=== PATIENT | male | born 1945 | race Caucasian/White ===

== ENCOUNTER 2023-11-17 16:13 | Emergency (ER) | payer OTHER, MEDICARE ==
[~2023-11-17] VITALS: Ht 160 cm; Wt 109.1 kg
[2023-11-17 16:42] VITALS: BP 156/111; PULSE 103; RESP 18; O2SAT 96
[2023-11-17 18:21] VITALS: TEMP 98.4
== END 2023-11-17 18:28 | disposition home or self-care (01) ==
LOC: ER 16:15
DX: T53.5X1A Toxic effect of chlorofluorocarbons, accidental (unintentional), initial encounter (principal); R42 Dizziness and giddiness; R11.0 Nausea; Y92.89 Other specified places as the place of occurrence of the external cause
CPT/HCPCS: 99281

== ENCOUNTER 2023-11-26 15:50 | Inpatient (IN) | payer OTHER, MEDICARE ==
[~2023-11-26] VITALS: Ht 160 cm; Wt 107.7 kg
[2023-11-26 18:03] LABS: BILIRUBIN,URINE NEGATIVE (Neg); CLARITY,URINE SLIGHTLY CLOUDY (Clear); COLOR,URINE YELLOW (Yellow); GLUCOSE, URINE NEGATIVE (Neg); KETONES,URINE NEGATIVE (Neg); LEUKOCYTE ESTERASE ,URINE NEGATIVE (Neg); NITRITES, URINE NEGATIVE (Neg); OCCULT BLOOD,URINE NEGATIVE (Neg); PH,URINE 5.5 (4.8-8.0); PROTEIN,URINE NEGATIVE (Neg); UROBILINOGEN,URINE 0.2 E.U/dL (0.2-1.0)
[2023-11-26 18:10] LABS: UA COLLECTION TYPE NON-SPECIFIED
[2023-11-26 18:11] LABS: BASOPHILS # (AUTO) 0.1 X10'3 (0-0.2); BASOPHILS % (AUTO) 0.6 % (0-1); EOSINOPHILS # (AUTO) 0.2 X10'3 (0-0.9); EOSINOPHILS % (AUTO) 2.2 % (0-6); HEMOGLOBIN 15.6 g/dl (14.0-17.9); MONOCYTES # (AUTO) 0.7 X10'3 (0-0.9); NEUTROPHILS # (AUTO) 7.2 X10'3 (1.8-7.7)
[2023-11-26 18:13] LABS: HEMATOCRIT 45.5 % (42.0-52.0); LYMPHOCYTES # (AUTO) 1.2 X10'3 (1.1-4.8); LYMPHOCYTES % (AUTO) 12.3 % (21-51); MEAN CORPUSCULAR HEMOGLOBIN 31.7 PG (27.0-31.0); MEAN CORPUSCULAR HGB CONC 34.3 g/dL (33.0-36.5); MEAN CORPUSCULAR VOLUME 92.4 FL (78-98); MEAN PLATELET VOLUME 9.8 FL (7.4-10.4); MONOCYTES % (AUTO) 7.9 % (2-12); PLATELET COUNT 225 X10'3 (140-440); RED BLOOD COUNT 4.92 X10'6 (4.70-6.10); RED CELL DISTRIBUTION WIDTH 13.4 % (11.5-14.5); WHITE BLOOD COUNT 9.4 X10'3 (4.5-11.0)
[2023-11-26 18:14] LABS: BACTERIA,URINE FEW /HPF (Neg); RBC,URINE 0-2 /HPF (0-2); SQUAMOUS EPITHELIAL CELL,UR FEW /LPF (FEW); WBC,URINE 0-4 /HPF (0-4)
[2023-11-26 18:17] LABS: ALANINE AMINOTRANSFERASE 53 U/L (12-78); ALBUMIN 3.6 G/DL (3.4-5.0); ALBUMIN/GLOBULIN RATIO 1.1 (1.1-1.5); ALKALINE PHOSPHATASE 64 IU/L (46-116); ANION GAP 7 (8-16); ASPARTATE AMINO TRANSFERASE 31 U/L (10-37); BILIRUBIN,TOTAL 0.5 MG/DL (0.1-1.0); BLOOD UREA NITROGEN 19 MG/DL (7-18); BUN/CREATININE RATIO 16.7 (10.0-20.0); CALCIUM 8.9 MG/DL (8.5-10.1); CHLORIDE 110 MMOL/L (99-107); CREATININE 1.14 MG/DL (0.60-1.10); GLUCOSE 118 MG/DL (70-104); SODIUM 141 MMOL/L (135-145); TOTAL CARBON DIOXIDE 23.6 MMOL/L (24-32); eCRCL 44 ML/MIN; eGFR 62 ML/MIN
[2023-11-26 19:13] LABS: LIPASE > 375 U/L (16-77)
[2023-11-26] MEDS: normal saline 1000ML IV soln IVB ONE (20:16)
[2023-11-26] MEDS ORDERED: magnesium sulf-water 2g/50mL 50 ML IV PRN (20:20)
[2023-11-26] MEDS ORDERED: mag hydrox/Alum hydrox/simeth 30ml oral suspension PO PRN (20:20)
[2023-11-26] MEDS ORDERED: magnesium Cl slow-release 64mg tablet PO PRN (20:20)
[2023-11-26] MEDS ORDERED: magnesium hydroxide 30ml (MOM) UD suspension PO PRN (20:20)
[2023-11-26] MEDS ORDERED: magnesium sulf-water 4G/100mL 100 ML IV PRN (20:20)
[2023-11-26] MEDS ORDERED: potassium Cl 20 mEq SR tablet PO PRN ×2 (20:20)
[2023-11-26] MEDS ORDERED: potassium Cl 40MEQ/1/2NS 520ml 520 ML IV PRN (20:20)
[2023-11-26] MEDS: ondansetron/PF 4mg/2ml inj IV PRN (21:09)
[2023-11-26] MEDS: morphine 2 MG/ML inj. syringe IV PRN (21:10)
[2023-11-26 22:10] VITALS: BP 170/103; PULSE 74; RESP 16; RESP 18; TEMP 97; O2SAT 93; O2SAT 97
[2023-11-26] MEDS: HYDROcodone/acetaminophen 5mg/325mg tablet PO PRN (22:56)
[2023-11-26 23:00] VITALS: BP 148/81; O2SAT 97
[2023-11-26] MEDS: normal saline 1000ml 1,000 ML IV SCH (23:40)
[2023-11-27 05:50] VITALS: BP_SYST 168; BP_SYST 174; BP_DIAS 87; BP_DIAS 93; PULSE 73; PULSE 78
[2023-11-27] MEDS: hydrALAZINE 20mg/ml inj. IV PRN (06:03)
[2023-11-27 06:30] VITALS: BP 160/88; PULSE 78; RESP 18; TEMP 96.7; O2SAT 95
[2023-11-27 08:00] VITALS: RESP 18; O2SAT 96
[2023-11-27 08:00] LABS: BASOPHILS % (AUTO) 0.2 % (0-1); EOSINOPHILS # (AUTO) 0.1 X10'3 (0-0.9); EOSINOPHILS % (AUTO) 1.2 % (0-6); HEMATOCRIT 42.7 % (42.0-52.0); HEMOGLOBIN 14.5 g/dl (14.0-17.9); LYMPHOCYTES # (AUTO) 1.3 X10'3 (1.1-4.8); LYMPHOCYTES % (AUTO) 11.7 % (21-51); MEAN CORPUSCULAR HEMOGLOBIN 31.3 PG (27.0-31.0); MEAN CORPUSCULAR HGB CONC 33.9 g/dL (33.0-36.5); MEAN CORPUSCULAR VOLUME 92.3 FL (78-98); MEAN PLATELET VOLUME 9.1 FL (7.4-10.4); MONOCYTES # (AUTO) 0.7 X10'3 (0-0.9); MONOCYTES % (AUTO) 6.4 % (2-12); NEUTROPHILS # (AUTO) 8.9 X10'3 (1.8-7.7); NEUTROPHILS % (AUTO) 80.5 % (42-75); PLATELET COUNT 191 X10'3 (140-440); RED BLOOD COUNT 4.63 X10'6 (4.70-6.10); RED CELL DISTRIBUTION WIDTH 13.7 % (11.5-14.5); WHITE BLOOD COUNT 11.1 X10'3 (4.5-11.0)
[2023-11-27] MEDS: K and/or MAG REPLACEMENT MC SCH (08:00)
[2023-11-27 08:08] LABS: ALBUMIN 3.3 G/DL (3.4-5.0); ANION GAP 4 (8-16); BLOOD UREA NITROGEN 14 MG/DL (7-18); BUN/CREATININE RATIO 17.5 (10.0-20.0); CHLORIDE 109 MMOL/L (99-107); CHOL/HDL RATIO 3.5 (0.00-4.99); CHOLESTEROL 142 MG/DL (0-200); GLUCOSE 117 MG/DL (70-104); HDL CHOLESTEROL 41 MG/DL (35-60); LDL CHOLESTEROL 87 MG/DL (50-100); SODIUM 137 MMOL/L (135-145); TOTAL CARBON DIOXIDE 24.5 MMOL/L (24-32); TRIGLYCERIDES 65 MG/DL (20-135); eCRCL 62 ML/MIN; eGFR > 90 ML/MIN
[2023-11-27] MEDS: docusate sod 100mg capsule PO SCH (08:46)
[2023-11-27] MEDS: enoxaparin 40mg/0.4ml syringe SUBCUT SCH (08:47)
[2023-11-27 12:53] LABS: LIPASE 285 U/L (16-77)
[2023-11-27] MEDS ORDERED: NO HOME MEDS (13:16)
[2023-11-27 18:00] VITALS: BP 157/85; PULSE 87; RESP 18; TEMP 98.2; O2SAT 92
[2023-11-27 22:00] VITALS: BP 148/66; PULSE 93; RESP 18; TEMP 97.6; O2SAT 97
[2023-11-27] MEDS: acetaminophen 325mg tablet PO PRN (22:49)
[2023-11-28] VITALS (19 sets, daily range): BP systolic 131–171; BP diastolic 27–96; PULSE 77–100; RESP 15–20; TEMP 97.2–99.1; O2SAT 92–98
[2023-11-28 06:05] LABS: BASOPHILS % (AUTO) 0.1 % (0-1); EOSINOPHILS # (AUTO) 0.3 X10'3 (0-0.9); EOSINOPHILS % (AUTO) 2.3 % (0-6); HEMATOCRIT 42.5 % (42.0-52.0); HEMOGLOBIN 14.6 g/dl (14.0-17.9); LYMPHOCYTES # (AUTO) 1.4 X10'3 (1.1-4.8); LYMPHOCYTES % (AUTO) 12.9 % (21-51); MEAN CORPUSCULAR HEMOGLOBIN 31.6 PG (27.0-31.0); MEAN CORPUSCULAR HGB CONC 34.3 g/dL (33.0-36.5); MEAN PLATELET VOLUME 9.7 FL (7.4-10.4); MONOCYTES % (AUTO) 9.2 % (2-12); NEUTROPHILS # (AUTO) 8.2 X10'3 (1.8-7.7); NEUTROPHILS % (AUTO) 75.5 % (42-75); PLATELET COUNT 184 X10'3 (140-440); RED BLOOD COUNT 4.62 X10'6 (4.70-6.10); RED CELL DISTRIBUTION WIDTH 13.6 % (11.5-14.5); WHITE BLOOD COUNT 10.9 X10'3 (4.5-11.0)
[2023-11-28 06:11] LABS: ALBUMIN 3.1 G/DL (3.4-5.0); ANION GAP 9 (8-16); BLOOD UREA NITROGEN 8 MG/DL (7-18); BUN/CREATININE RATIO 10.4 (10.0-20.0); CALCIUM 8.1 MG/DL (8.5-10.1); CHLORIDE 105 MMOL/L (99-107); CREATININE 0.77 MG/DL (0.60-1.10); GLUCOSE 98 MG/DL (70-104); LIPASE 122 U/L (16-77); MAGNESIUM 1.9 MG/DL (1.5-2.4); POTASSIUM 3.8 MMOL/L (3.5-5.1); SODIUM 139 MMOL/L (135-145); TOTAL CARBON DIOXIDE 25.4 MMOL/L (24-32); eCRCL 65 ML/MIN; eGFR > 90 ML/MIN
[2023-11-28] MEDS: BUPIVAcaine 2.5mg/ml inj 50ml vial (contains preservative) ONE (17:58)
[2023-11-28] MEDS ORDERED: meperidine/PF 25mg/ml syringe IV PRN ×2 (18:00)
[2023-11-28] MEDS ORDERED: morphine 2 MG/ML inj. syringe IV PRN (18:00)
[2023-11-28] MEDS: ringers solution, lacted 1,000 ML IV SCH (18:00)
[2023-11-28] MEDS ORDERED: ondansetron/PF 4mg/2ml inj IV PRN ×2 (18:00→19:50)
[2023-11-28] MEDS ORDERED: morphine 4 MG/ML inj SYRINge IV PRN (18:00)
[2023-11-28] MEDS ORDERED: proCHLORperazine 10 MG/2 ml inj IV PRN (18:00)
[2023-11-28] MEDS ORDERED: sevoflurane 250ml liquid IH ONE (18:07)
[2023-11-28] MEDS ORDERED: propofol inj 20 ML IV ONE (18:12)
[2023-11-28] MEDS ORDERED: rocuronium 10mg/ml inj IV ONE (18:12)
[2023-11-28] MEDS ORDERED: midazolam 1 mg/ML 2ml injection ONE (18:12)
[2023-11-28] MEDS ORDERED: fentaNYL/PF 50MCG/1 ML 2ML syringe ONE ×3 (18:12→19:48)
[2023-11-28] MEDS ORDERED: ceFOXitin 1000 MG inj ONE ×2 (18:36)
[2023-11-28] MEDS: BUPIVAcaine 2.5mg/ml inj 50ml vial (contains preservative) SQ ONE (19:04)
[2023-11-28] MEDS ORDERED: dexamethasone sod phosphate 4mg/ml inj. ONE (19:27)
[2023-11-28] MEDS ORDERED: ondansetron/PF 4mg/2ml inj ONE (19:27)
[2023-11-28] MEDS ORDERED: neostigmine methylsulfate 1 MG/ML 10ml vial ONE (19:29)
[2023-11-28] MEDS ORDERED: glycopyrrolate 0.2mg/ml inj ONE (19:29)
[2023-11-28] MEDS ORDERED: HYDROcodone/acetaminophen 10/325mg tab PO PRN (19:50)
[2023-11-28] MEDS ORDERED: naloxone 0.4 mg/ml inj IV PRN (19:50)
[2023-11-28] MEDS ORDERED: HYDROmorphone inj. 0.5 MG/0.5 ML DISP.SYRIN IV PRN (19:50)
[2023-11-28] MEDS: meperidine/PF 25mg/ml syringe IV PRN (20:14)
[2023-11-28] MEDS: acetaminophen 1,000mg/100ml IV 100 ML IV ONE (22:07)
[2023-11-28] MEDS: ceFOXitin 1 GM/NS 100mL IVPB 100 ML IV SCH (23:43)
[2023-11-29] VITALS (9 sets, daily range): BP systolic 119–137; BP diastolic 63–76; PULSE 68–77; RESP 16–22; TEMP 97.6–98.2; O2SAT 93–98
[2023-11-29 06:54] LABS: BASOPHILS % (AUTO) 0.1 % (0-1); EOSINOPHILS % (AUTO) 0 % (0-6); HEMATOCRIT 41.5 % (42.0-52.0); HEMOGLOBIN 14.1 g/dl (14.0-17.9); LYMPHOCYTES # (AUTO) 0.8 X10'3 (1.1-4.8); LYMPHOCYTES % (AUTO) 7.8 % (21-51); MEAN CORPUSCULAR HEMOGLOBIN 31.6 PG (27.0-31.0); MEAN CORPUSCULAR VOLUME 92.8 FL (78-98); MEAN PLATELET VOLUME 9.4 FL (7.4-10.4); MONOCYTES # (AUTO) 0.3 X10'3 (0-0.9); MONOCYTES % (AUTO) 2.9 % (2-12); NEUTROPHILS % (AUTO) 89.2 % (42-75); PLATELET COUNT 175 X10'3 (140-440); RED BLOOD COUNT 4.47 X10'6 (4.70-6.10); RED CELL DISTRIBUTION WIDTH 13.1 % (11.5-14.5); WHITE BLOOD COUNT 10.1 X10'3 (4.5-11.0)
[2023-11-29 07:06] LABS: ALBUMIN 2.7 G/DL (3.4-5.0); ANION GAP 7 (8-16); BLOOD UREA NITROGEN 15 MG/DL (7-18); BUN/CREATININE RATIO 19.7 (10.0-20.0); CALCIUM 7.9 MG/DL (8.5-10.1); CHLORIDE 106 MMOL/L (99-107); CREATININE 0.76 MG/DL (0.60-1.10); GLUCOSE 130 MG/DL (70-104); LIPASE 62 U/L (16-77); MAGNESIUM 1.9 MG/DL (1.5-2.4); POTASSIUM 4.1 MMOL/L (3.5-5.1); SODIUM 137 MMOL/L (135-145); TOTAL CARBON DIOXIDE 23.6 MMOL/L (24-32); eCRCL 66 ML/MIN; eGFR > 90 ML/MIN
[2023-11-29 12:38] LABS: ALANINE AMINOTRANSFERASE 37 U/L (12-78); ALBUMIN 2.6 G/DL (3.4-5.0); ALBUMIN/GLOBULIN RATIO 0.7 (1.1-1.5); ALKALINE PHOSPHATASE 53 IU/L (46-116); ANION GAP 5 (8-16); ASPARTATE AMINO TRANSFERASE 33 U/L (10-37); BILIRUBIN,TOTAL 0.6 MG/DL (0.1-1.0); BLOOD UREA NITROGEN 14 MG/DL (7-18); BUN/CREATININE RATIO 15.1 (10.0-20.0); CALCIUM 8.1 MG/DL (8.5-10.1); CHLORIDE 107 MMOL/L (99-107); CREATININE 0.93 MG/DL (0.60-1.10); GLUCOSE 130 MG/DL (70-104); POTASSIUM 3.8 MMOL/L (3.5-5.1); SODIUM 138 MMOL/L (135-145); TOTAL CARBON DIOXIDE 25.6 MMOL/L (24-32); TOTAL PROTEIN 6.2 G/DL (6.4-8.2); eCRCL 54 ML/MIN; eGFR 79 ML/MIN
[2023-11-29] MEDS ORDERED: enoxaparin 40mg/0.4ml syringe SUBCUT SCH (20:00)
[2023-11-29] MEDS: enoxaparin 40mg/0.4ml syringe SUBCUT SCH (20:43)
[2023-11-30 06:00] VITALS: BP 133/87; PULSE 80; RESP 18; TEMP 97.3; O2SAT 94
[2023-11-30 06:13] LABS: ALBUMIN 2.6 G/DL (3.4-5.0); ANION GAP 8 (8-16); BLOOD UREA NITROGEN 22 MG/DL (7-18); BUN/CREATININE RATIO 28.2 (10.0-20.0); CALCIUM 8.2 MG/DL (8.5-10.1); CHLORIDE 109 MMOL/L (99-107); CREATININE 0.78 MG/DL (0.60-1.10); GLUCOSE 101 MG/DL (70-104); MAGNESIUM 2.2 MG/DL (1.5-2.4); SODIUM 141 MMOL/L (135-145); TOTAL CARBON DIOXIDE 24.2 MMOL/L (24-32); eCRCL 64 ML/MIN; eGFR > 90 ML/MIN
[2023-11-30 06:15] LABS: POTASSIUM 4.2 MMOL/L (3.5-5.1)
[2023-11-30 08:12] LABS: LIPASE 108 U/L (16-77)
[2023-11-30 08:26] VITALS: RESP 18; O2SAT 98
[2023-11-30 10:00] VITALS: BP 139/87; PULSE 91; RESP 18; TEMP 97.7; O2SAT 93
[2023-11-30] MEDS ORDERED: IBUP-1985 PO (11:01)
[2023-11-30] MEDS ORDERED: ONDA-243 PO (11:03)
[2023-11-30 11:20] LABS: BASOPHILS # (AUTO) 0.1 X10'3 (0-1); BASOPHILS % 1 % (0-2); EOSINOPHILS # (AUTO) 0.3 X10'3 (0-0.9); EOSINOPHILS % (AUTO) 3 % (0-5); HEMOGLOBIN 13.5 G/DL (12.5-16.3); LYMPHOCYTES # (AUTO) 1.5 X10'3 (0.6-4.1); LYMPHOCYTES % 14 % (24-44); MEAN CORPUSCULAR HEMOGLOBIN 31.5 PG (27-31.2); MEAN CORPUSCULAR HGB CONC 34.5 % (32-36); MEAN CORPUSCULAR VOLUME 91.4 FL (81-97); MONOCYTES # (AUTO) 0.8 X10'3 (0-0.9); MONOCYTES % 8 % (0-12); NEUTROPHILS # (AUTO) 7.7 X10'3 (>=1.4); PLATELET COUNT 219 X10'3 (130-400); RED BLOOD COUNT 4.27 X10'6 (4.30-5.90); RED CELL DISTRIBUTION WIDTH 13.3 % (11-16); SEGMENTED NEUTROPHILS % 74 % (36-66); WHITE BLOOD COUNT 10.4 X10'3 (4.5-11.0)
== END 2023-11-30 13:45 | disposition home or self-care (01) | DRG 417 ==
LOC: ER 15:50 → ED HOLD 20:24 → ORTHO 4S 22:11 → SUR 3N 11-29 16:53
PROVIDERS: ADMIT Internal Medicine Critical Care Medicine; ATTEND Family Medicine
PROC: 8E0W4CZ Robotic Assisted Procedure of Trunk Region, Percutaneous Endoscopic Approach (ICD-10-PCS; 2023-11-28)
PROC: 0FT44ZZ Resection of Gallbladder, Percutaneous Endoscopic Approach (ICD-10-PCS; principal; 2023-11-28 18:07)
DX: K80.20 Calculus of gallbladder without cholecystitis without obstruction (principal); K85.10 Biliary acute pancreatitis without necrosis or infection; N17.0 Acute kidney failure with tubular necrosis; Z68.41 Body mass index [BMI] 40.0-44.9, adult; N28.1 Cyst of kidney, acquired; K82.8 Other specified diseases of gallbladder; E66.01 Morbid (severe) obesity due to excess calories; E78.5 Hyperlipidemia, unspecified; Z87.442 Personal history of urinary calculi; Z79.899 Other long term (current) drug therapy
CPT/HCPCS: 36415; 71045; 74176; 76700; 80048; 80053; 80061; 81001; 82948; 83690; 83735; 84145; 85025; 87081; 93005; 96360; 99285; A4215; A4615; A4618; A6212; A6258; A6449; A7000; G0378; J0131; J0360; J0694; J1100; J1650; J2175; J2250; J2270; J2405; J2704; J2710; J3010; J3490; J7030; J7120